=== PATIENT | female | born 1975 | race African-American/Black ===

== ENCOUNTER 2017-01-12 02:49 | Emergency (ER) | payer OTHER ==
[~2017-01-12] VITALS: Ht 170.2 cm; Wt 94.8 kg
--- NOTE | 2017-01-12 03:43 | ED GI/GU/ABDOMINAL COMPLAINT ---
History of Present Illness General Chief Complaint: General Adult Stated Complaint: "PER PT I THINK I HAVE STD" Source: patient Exam Limitations: no limitations Vital Signs & Intake/Output Vital Signs & Intake/Output Vital Signs Date Time Temp Pulse Resp B/P Pulse O2 O2 Flow FiO2 Ox Delivery Rate 01/12 0311 99.4 74 18 167/96 97 Room Air Allergies Coded Allergies: No Known Allergies (01/12/17) Reconcile Medications Doxycycline Hyclate 100 MG TABLET 1 TAB PO BID urologic Triage Note: PT FROM HOME C/O PT IS HERE FOR A PROACTIVE TREATMENT TO A POSSIBLE STD THAT HER SIGNIFICANT OTHER GAVE HER. PT DENIES ANY SYMPTOMS OF DISCHARGE. Triage Nurses Notes Reviewed? yes ? N Is pt currently ? No Onset: PATIENT IS ASYMPTOMATIC Duration: PATIENT IS ASYMPTOMATIC HPI: 41-year-old woman in good health presents with a concern for exposure to sexually transmitted infection. She shares that her partner has been having a penile discharge for the past few days. Her partner also had intercourse with a woman who was later diagnosed with a sexually transmitted infection. She notes that she is asymptomatic. She has no dysuria or vaginal discharge. She declines a pelvic exam. Past History Travel History Traveled to [place] past 21 day No Medical History Any Pertinent Medical History? see below for history Surgical History Surgical History: none Psychosocial History What is your primary language [place]ian Tobacco Use: Never used ETOH Use: occasional use Illicit Drug Use: denies illicit drug use Family History Hx Contributory? No Review of Systems Review of Systems Constitutional: Reports: no symptoms. EENTM: Reports: no symptoms. Respiratory: Reports: no symptoms. Cardiovascular: Reports: no symptoms. GI: Reports: no symptoms. Genitourinary: Reports: no symptoms. Musculoskeletal: Reports: no symptoms. Skin: Reports: no symptoms. Neurological/Psychological: Reports: no symptoms. Hematologic/Endocrine: Reports: no symptoms. Immunologic/Allergic: Reports: no symptoms. All Other Systems: Reviewed and Negative Physical Exam Physical Exam General Appearance: well developed/nourished, no apparent distress Head: atraumatic, normal appearance Eyes: Bilateral: normal appearance. Ears, Nose, Throat, Mouth: hearing grossly normal Neck: normal inspection Respiratory: normal breath sounds Cardiovascular: regular rate/rhythm Gastrointestinal: normal bowel sounds, soft, non-tender Pelvic: PATIENT DECLINES Back: normal inspection Extremities: normal range of motion Neurologic/Psych: no motor/sensory deficits, awake, alert, oriented x 3 Skin: intact, normal color, warm/dry Core Measures ACS in differential dx? No Severe Sepsis Present: No Septic Shock Present: No Progress Differential Diagnosis: UTI/pyelo, URETHRITIS VERSUS pid VERSUS CERVICITIS VERSUS OTHER Plan of Care: Orders Procedure Date/time Status GC DNA PROBE 01/12 401 Active URINE 01/12 302 Active URINALYSIS 01/12 302 Active Current Medications Sig/Raji Start time Last Medication Dose Stop Time Status Admin Azithromycin 1,000 MG ONCE ONE 01/12 415 UNVr (Zithromax) 01/12 416 Ceftriaxone Sodium 500 MG ONCE ONE 01/12 415 UNVr (Rocephin) 01/12 416 Laboratory Tests 01/12/175: Urine Color Pending, Urine Clarity Pending, Urine pH Pending, Ur Specific Corinne Pending, Urine Protein Pending, Urine Ketones Pending, Urine Nitrite Pending, Urine Bilirubin Pending, Urine Urobilinogen Pending, Ur Leukocyte Esterase Pending, Ur Microscopic SEDIMENT EXAMINED, Urine RBC Pending, Urine Hemoglobin Pending, Urine Glucose Pending, Urine Test NEGATIVE Microbiology 01/12 302 URINE ROUT: Urine Culture - CAN Cancelled: Cancelled via OE: Per MD Decision 01/12 302 GENITAL: GC DNA Probe - CAN Cancelled: Cancelled via OE: Per MD Decision 01/12 302 GENITAL: Chlamydia DNA Probe ([facility]) - CAN Cancelled: Cancelled via OE: Per MD Decision 01/12 302 GENITAL: KARON Preparation - CAN Cancelled: Cancelled via OE: Per MD Decision 01/12 302 GENITAL: Trichomonas Preparation - CAN Cancelled: Cancelled via OE: Per MD Decision 01/12 302 GENITAL: Genital Culture - CAN Cancelled: Cancelled via OE: Per MD Decision Initial ED EKG: none Departure Departure Disposition: HOME OR SELF CARE Condition: Stable Clinical Impression Primary Impression: Encounter for screening for infections with predominantly sexual mode of transmission Referrals: UNKNOWN (PCP/Family) Departure Forms: Customer Survey General Discharge Information Prescriptions: Current Visit Scripts Doxycycline Hyclate 1 TAB PO BID #20 TAB Comments Patient given ceftriaxone and Zithromax as well as a prescription for Doxy. I counseled her to follow up with her primary care doctor to consider HIV testing.
[2017-01-12] MEDS ORDERED: DOXYCYCLINE HY100 M4 PO (04:03)
[2017-01-12 04:42] VITALS: BP 152/42
== END 2017-01-12 04:43 ==
LOC: ERH 02:49
DX: Z11.3 Encounter for screening for infections with a predominantly sexual mode of transmission (principal)
CPT/HCPCS: 87070; 81001; 81025; 87086; 87491; 87591; 96372; J0456; J0696